=== PATIENT | female | born 1955 | race Caucasian/White ===

== ENCOUNTER 2019-09-21 15:27 | Emergency (ER) | payer BC, OTHER ==
[~2019-09-21] VITALS: Ht 170.2 cm; Wt 90.9 kg
[2019-09-21 15:30] VITALS: BP 187/73
== END 2019-09-21 16:32 | disposition home or self-care (01) ==
LOC: ER 15:28
DX: M25.562 Pain in left knee (principal); Z88.0 Allergy status to penicillin; Z88.1 Allergy status to other antibiotic agents; W18.39XA Other fall on same level, initial encounter; Y93.89 Activity, other specified; Y92.89 Other specified places as the place of occurrence of the external cause; Y99.8 Other external cause status
CPT/HCPCS: 73564; 99283